=== PATIENT | female | born 1980 | race Caucasian/White ===

== ENCOUNTER → 2016-03-19 | Outpatient (CLI) | payer OTHER ==
--- NOTE | 2016-03-19 15:39 | US ---
March 19, [address] Lockhart, Thank you for allowing us to see your patient regarding polyhydramnios. As you know she is a 35 year -old 1, para 0. Her due date is 04/18/16 which is based on early dating. Her current gestatio nal age based on this dating is 35 weeks 5 days. She was seen previously for the same. Number of fetuses: 1 Placental location: right lateral/fundal no previa presentation: cephalic Cervix: suboptimal HUGO of 30 cm Measurements: Biparietal diameter: 85 mm 34 weeks, 2 days Head circumference: 333 mm 38 weeks, 1 days Abdominal circumference: 331 mm 37 weeks, 1 days Femur length: 67 mm 34 weeks, 5 days Humerus length: 59 mm 34 weeks, 1 days Average ultrasound age: 36 weeks, 1 days Estimated weight: 2884 gm weight percentile: 65 % ANATOMY anatomy was previously assessed. Today the following structures were visualized and appeared n ormal: Profile, heart rate 142 beats minute, four-chamber, stomach, bladder, right left kidney s.. Impression: This is a 35 year-old, 1, para 0 at 35 weeks, 5 days gestation. 1. SIUP with biometry cw gestational age as reported. 2. Polyhydramnios- stabilized at 30 cm today with reassuring growth. She will continue 2/wk NST, q we ek fluid and plan for delivery not later than 39 weeks. Thank you for allowing me to see your patient. Approximately 10 minutes was spent with the patient a nd 6 was spent discussing her issues. Wendi Deluca MD Perinatologist Division of Maternal Medicine Department of Obstetrics and Gynecology [facility]
--- NOTE | 2016-03-19 17:19 | US ---
Follow Up Obstetrical Sonography Clinical History: 36-year-old female with advanced maternal age and prior polyhydramnios. Technique: A curvilinear 5 MHz transducer was used to sonographically evaluate the fetus and placenta . M-mode Doppler was used. A cine clip was also obtained. Wendi Feldman was present. Comparison Studies: Obstetrical sonography dated March 05, 2016, and February 19, 2016. LMP: July 13, 2015, indicating an age of 35 weeks 5 days, and an estimated date of delivery of 2016. Findings: Again, there is a single viable intrauterine gestation. The fetus is currently vertex in pr esentation. The placenta is right lateral and fundal in location, with no placenta previa observed. T he maternal cervical assessment is suboptimal, secondary to the lateness of gestation and positioning of the head. Polyhydramnios is noted, with an HUGO of 30 cm and a maximal vertical pocket of 9. 5 cm. As a point of reference, the HUGO on March 05, 2016 was 32.2 cm with a maximal vertical pocke t of 9.9 cm. A anatomic survey has been performed in the past. On today's study, the sagittal facial profile , four-chambered heart, stomach, right and left kidneys, and urinary bladder are seen. The hear t rate is 142 beats per minute. biometry is as follows: The biparietal diameter is 85 mm, corresponding to an age of 34 weeks 2 days +/- 3 weeks 1 day, which is at the 18th percentile. The head circumference is 333 mm, corresponding to an age of 38 weeks 1 day +/- 2 weeks 5 days, which is at the 76th percentile. The abdominal circumference is 331 mm, corresponding to an age of 37 weeks 1 day +/- 3 weeks 1 day, w hich is at the 89th percentile. The femur length is 67 mm, corresponding to an age of 34 weeks 5 days +/- 3 weeks 0 days, which is at the 19th percentile. The humeral length is 59 mm, corresponding to an age of 34 weeks 1 day, for a composite gestational a ge of 36 weeks 1 day. The estimated weight is 2884 grams +/- 421 grams, which is 6 pounds 6 ounces +/- 15 ounces, whi ch is at the 65th percentile. As a point of reference, on the prior sonogram of February 19, 2016, the estimated weight was at the 56th percentile. The head circumference to abdominal circumference ratio is 1.01, which is normal range. The femur hector gth to biparietal diameter ratio is 79%, and the femur length to abdominal circumference ratio is 20% . Impression: There is a single viable intrauterine gestation with normal growth parameters and persis tent though stabilizing polyhydramnios, compared to March 05, 2016. Please also refer to Dr. Deluca's separate assessments and specific recommendations for follow up.
== END ==
LOC: FIMAGING 14:25
PROVIDERS: ATTEND Obstetrics & Gynecology
DX: O09.813 Supervision of pregnancy resulting from assisted reproductive technology, third trimester (principal); O09.523 Supervision of elderly multigravida, third trimester; Z3A.35 35 weeks gestation of pregnancy

== ENCOUNTER 2016-03-28 17:37 | Inpatient (IN) | payer OTHER ==
[2016-03-28] MEDS ORDERED: OXYTOCIN/RINGERS LACTATE 1,000 ML IV PRN (17:44)
[2016-03-28] MEDS ORDERED: LIDOCAINE 1% 30 ML SDV SC PRN (17:44)
[2016-03-28] MEDS ORDERED: TERBUTALINE SULFATE 1 MG/ML VIAL IV PRN (17:44)
[2016-03-28] MEDS ORDERED: MINERAL OIL 60 ML OIL TP PRN (17:44)
[2016-03-28] MEDS ORDERED: LR 1,000 ML IV PRN (17:44)
[2016-03-28] MEDS ORDERED: EPSOM SALT 454 GM TP PRN (17:44)
[2016-03-28] MEDS ORDERED: ACETAMINOPHEN 325 MG TAB PO PRN (18:08)
[2016-03-28] MEDS ORDERED: CALCIUM CARBONATE 500 MG CHEWABLE TAB PO PRN (18:09)
[2016-03-28] MEDS ORDERED: diphenhydrAMINE 25 MG CAP PO PRN (18:10)
[2016-03-28 18:46] LABS: % IMMATURE GRANULYOCYTES 0.5 % (0.0-1.1); ABSOLUTE IMMATURE GRANULOCYTES 0.05 10^3/uL (0.00-0.10); ADD DIFF? NO; ADD MORPH? NO; ADD SCAN? NO; ATYPICAL LYMPHOCYTE FLAG 10 (0-99); FRAGMENT RBC FLAG 0 (0-99); HEMATOCRIT 38.8 % (38.0-47.0); HEMOGLOBIN 13.8 g/dL (12.6-16.3); LEFT SHIFT FLG 0 (0-99); LIPEMIA HEMOLYSIS FLAG 90 (0-99); MEAN CELL HEMOGLOBIN 32.2 pg (27.9-34.1); MEAN CELL HEMOGLOBIN CONCENTR. 35.6 g/dL (32.4-36.7); MEAN CELL VOLUME 90.4 fL (81.5-99.8); MEAN PLATELET VOLUME 10.9 fL (8.7-11.7); PLATELET CLUMPS FLAG 0 (0-99); PLATELET COUNT 196 10^3/uL (150-400); RED BLOOD CELL COUNT 4.29 10^6/uL (4.18-5.33); RED CELL DISTRIBUTION WIDTH 12.7 % (11.5-15.2)
[2016-03-28] MEDS ORDERED: AMPICILLIN SODIUM 2 GM in NS 100 ML IV ONE (19:00)
[2016-03-28 19:06] LABS: ALANINE AMINOTRANSFERASE 44 IU/L (9-52); ASPARTATE AMINOTRANSFERASE 32 IU/L (14-46); BILIRUBIN,TOTAL 0.4 mg/dL (0.1-1.4); BILIRUBIN-CONJUGATED 0.2 mg/dL (0.0-0.5); BILIRUBIN-UNCONJUGATED 0.2 mg/dL (0.0-1.1); CREATININE 0.6 mg/dL (0.6-1.0); GLOMERULAR FILTRATION RATE > 60; LACTATE DEHYDROGENASE 617 IU/L (313-618)
[2016-03-28] MEDS: AMPICILLIN SODIUM 1 GM in NS 100 ML IV SCH (23:55)
[2016-03-29] MEDS ORDERED: OXYTOCIN/LR *STANDARD DOSE PROTOCOL IV SCH (04:00)
[2016-03-29] MEDS: AMPICILLIN SODIUM 1 GM in NS 100 ML IV SCH ×4 (04:14→19:45)
--- NOTE | 2016-03-29 08:40 | OBPROG ---
OBG Progress Note Assessment/Plan: Assessment: Pt is a 36 y/o at 37+1 weeks EGA admitted for IOL for GHTN and polyhydramnios - Plan: 1) status reassuring 2) Labor: Serrano bulb out, discussed AROM, but baby is not well engaged against the cervix. Will reevaluate and continue w/ pitocin. 3) GBS + on ampicillin 4) Pain, no issues 5) HTN: BP's stable, PIH labs normal on admission. Will recheck if severe BPs occur. 03/29/16 08:35 Subjective: Pt has no complaints, not feeling contractions. Objective: 03/28/16 18:15 03/28/16 18:15 Patient ABO/Rh A NEGATIVE 03/28/16 19:05 Uric Acid 4.0 mg/dL (2.5-6.8) 03/28/16 18:15 Total Bilirubin 0.4 mg/dL (0.1-1.4) 03/28/16 18:15 Conjugated Bilirubin 0.2 mg/dL (0.0-0.5) 03/28/16 18:15 Unconjugated Bilirubin 0.2 mg/dL (0.0-1.1) 03/28/16 18:15 AST 32 IU/L (14-46) 03/28/16 18:15 ALT 44 IU/L (9-52) 03/28/16 18:15 Lactate Dehydrogenase 617 IU/L (313-618) 03/28/16 18:15 - SVE Dilation (cm): 5 Effacement (%): 50 Station: -3 Current Contraction Pattern: Regular FHR (bpm): 140 FHR Pattern Variability: Moderate FHR Category: 1 ICD10 Worksheet Patient Problems: Problems Problem Status Diagnosed Gestational hypertension Acute Polyhydramnios affecting in third trimester Acute - ICD10 Problem Qualifiers (1) Gestational hypertension Qualifiers: Trimester: third trimester Qualified Description: -induced hypertension, third trimester Qualifier Code(s): (O13.3) Gestational [ -induced] hypertension without significant proteinuria, third trimester (2) Polyhydramnios affecting in third trimester
--- NOTE | 2016-03-29 10:49 | OBPROG ---
OBG Progress Note Assessment/Plan: Assessment: Pt is a 36 y/o at 37+1 weeks EGA admitted for IOL for GHTN and polyhydramnios - Plan: 1) status reassuring 2) Labor: S/P AROM, copious clear fluid noted. IUPC placed easily. Will continue w/ pitocin. 3) GBS + on ampicillin 4) Pain, no issues 5) HTN: BP's stable, PIH labs normal on admission. Will recheck if severe BPs occur. 03/29/16 10:48 Subjective: Pt has no complaints. Objective: 03/28/16 18:15 03/28/16 18:15 Patient ABO/Rh A NEGATIVE 03/28/16 19:05 Uric Acid 4.0 mg/dL (2.5-6.8) 03/28/16 18:15 Total Bilirubin 0.4 mg/dL (0.1-1.4) 03/28/16 18:15 Conjugated Bilirubin 0.2 mg/dL (0.0-0.5) 03/28/16 18:15 Unconjugated Bilirubin 0.2 mg/dL (0.0-1.1) 03/28/16 18:15 AST 32 IU/L (14-46) 03/28/16 18:15 ALT 44 IU/L (9-52) 03/28/16 18:15 Lactate Dehydrogenase 617 IU/L (313-618) 03/28/16 18:15 - SVE Dilation (cm): 5 Effacement (%): 50 Station: -2 (FSE/IUPC placed. Copious clear fluid with AROM, FSE placed, head well applied to cervix ) Current Contraction Pattern: Regular FHR (bpm): 140 FHR Pattern Variability: Moderate FHR Category: 1 Membranes: AROM Amniotic Fluid Color: Clear ICD10 Worksheet Patient Problems: Problems Problem Status Diagnosed Gestational hypertension Acute Polyhydramnios affecting in third trimester Acute - ICD10 Problem Qualifiers (1) Gestational hypertension Qualifiers: Trimester: third trimester Qualified Description: -induced hypertension, third trimester Qualifier Code(s): (O13.3) Gestational [ -induced] hypertension without significant proteinuria, third trimester (2) Polyhydramnios affecting in third trimester
[2016-03-29] MEDS: LEVOTHYROXINE 88 MCG TAB PO SCH (12:09)
--- NOTE | 2016-03-29 13:26 | OBPROG ---
OBG Progress Note Assessment/Plan: Assessment: Pt is a 36 y/o at 37+1 weeks EGA admitted for IOL for GHTN and polyhydramnios - Plan: 1) status over all reassuring - decreased variability noted intermittently w/ early decels and mild variables. +scalp stim noted w/ SVE, so pH >7.15. Will start amnioinfusion. 2) Labor: S/P AROM, copious clear fluid noted. CX now more effaced, which is progress. Will continue w/ pitocin. 3) GBS + on ampicillin 4) Pain, no issues 5) HTN: BP's stable, PIH labs normal on admission. Will recheck if severe BPs occur. 03/29/16 13:25 Subjective: Pt breathing through contractions. Objective: 03/28/16 18:15 03/28/16 18:15 Patient ABO/Rh A NEGATIVE 03/28/16 19:05 Uric Acid 4.0 mg/dL (2.5-6.8) 03/28/16 18:15 Total Bilirubin 0.4 mg/dL (0.1-1.4) 03/28/16 18:15 Conjugated Bilirubin 0.2 mg/dL (0.0-0.5) 03/28/16 18:15 Unconjugated Bilirubin 0.2 mg/dL (0.0-1.1) 03/28/16 18:15 AST 32 IU/L (14-46) 03/28/16 18:15 ALT 44 IU/L (9-52) 03/28/16 18:15 Lactate Dehydrogenase 617 IU/L (313-618) 03/28/16 18:15 - SVE Dilation (cm): 5 Effacement (%): 90 Station: -2 Current Contraction Pattern: Regular FHR (bpm): 135 FHR Pattern Variability: Minimal FHR Category: 1 (+scalp stim noted with accel to 155 bpm w/ SVE) Amniotic Fluid Color: Clear ICD10 Worksheet Patient Problems: Problems Problem Status Diagnosed Gestational hypertension Acute Polyhydramnios affecting in third trimester Acute - ICD10 Problem Qualifiers (1) Gestational hypertension Qualifiers: Trimester: third trimester Qualified Description: -induced hypertension, third trimester Qualifier Code(s): (O13.3) Gestational [ -induced] hypertension without significant proteinuria, third trimester (2) Polyhydramnios affecting in third trimester
[2016-03-29] MEDS ORDERED: fentaNYL 2MCG/ML/BUP 0.1% RTU 100 ML BAG EP ONE (13:41)
[2016-03-29] MEDS ORDERED: PHENYLEPHRINE HCL 100 MCG/ML SYR ONE (13:42)
[2016-03-29] MEDS ORDERED: BUPIVACAINE 0.25% 30 ML SDV ONE (13:42)
[2016-03-29] MEDS ORDERED: LR 500 ML IV SCH (15:00)
--- NOTE | 2016-03-29 16:31 | OBPROG ---
OBG Progress Note Assessment/Plan: Assessment: Pt is a 36 y/o at 37+1 weeks EGA admitted for IOL for GHTN and polyhydramnios - Plan: 1) status over all reassuring - improved w/ amnioinfusion. Intermittent decreased variability, good scalp stim w/ accel present after SVE. 2) Labor: S/P AROM, progressing well, now AL on left side, complete effacement , +1. Will continue w/ pitocin. 3) GBS + on ampicillin 4) Pain, no issues 5) HTN: BP's stable, PIH labs normal on admission. Will recheck if severe BPs occur. 03/29/16 16:30 Subjective: Pt comfortable with RYLEE. Objective: 03/28/16 18:15 03/28/16 18:15 Patient ABO/Rh A NEGATIVE 03/28/16 19:05 Uric Acid 4.0 mg/dL (2.5-6.8) 03/28/16 18:15 Total Bilirubin 0.4 mg/dL (0.1-1.4) 03/28/16 18:15 Conjugated Bilirubin 0.2 mg/dL (0.0-0.5) 03/28/16 18:15 Unconjugated Bilirubin 0.2 mg/dL (0.0-1.1) 03/28/16 18:15 AST 32 IU/L (14-46) 03/28/16 18:15 ALT 44 IU/L (9-52) 03/28/16 18:15 Lactate Dehydrogenase 617 IU/L (313-618) 03/28/16 18:15 - SVE Dilation (cm): 9 Effacement (%): 100 Station: +1 Current Contraction Pattern: Regular FHR (bpm): 140 FHR Pattern Variability: Moderate FHR Category: 1 Amniotic Fluid Color: Clear ICD10 Worksheet Patient Problems: Problems Problem Status Diagnosed Gestational hypertension Acute Polyhydramnios affecting in third trimester Acute - ICD10 Problem Qualifiers (1) Gestational hypertension Qualifiers: Trimester: third trimester Qualified Description: -induced hypertension, third trimester Qualifier Code(s): (O13.3) Gestational [ -induced] hypertension without significant proteinuria, third trimester (2) Polyhydramnios affecting in third trimester
--- NOTE | 2016-03-29 18:15 | OBPROG ---
OBG Progress Note Assessment/Plan: Assessment: Pt is a 36 y/o at 37+1 weeks EGA admitted for IOL for GHTN and polyhydramnios - Plan: 1) status over all reassuring - improved w/ amnioinfusion. Intermittent decreased variability, good scalp stim w/ accel present after SVE. 2) Labor: Will start pushing, good efforts noted w/ pushing at the bedside. 3) GBS + on ampicillin 4) Pain, no issues 5) HTN: BP's stable, PIH labs normal on admission. Will recheck if severe BPs occur. 03/29/16 18:14 Subjective: Pt comfortable, but can feel when getting a contraction. Objective: 03/28/16 18:15 03/28/16 18:15 Patient ABO/Rh A NEGATIVE 03/28/16 19:05 Uric Acid 4.0 mg/dL (2.5-6.8) 03/28/16 18:15 Total Bilirubin 0.4 mg/dL (0.1-1.4) 03/28/16 18:15 Conjugated Bilirubin 0.2 mg/dL (0.0-0.5) 03/28/16 18:15 Unconjugated Bilirubin 0.2 mg/dL (0.0-1.1) 03/28/16 18:15 AST 32 IU/L (14-46) 03/28/16 18:15 ALT 44 IU/L (9-52) 03/28/16 18:15 Lactate Dehydrogenase 617 IU/L (313-618) 03/28/16 18:15 - SVE Dilation (cm): 10 Effacement (%): 100 Station: +2 Current Contraction Pattern: Regular FHR (bpm): 140 FHR Pattern Variability: Moderate FHR Category: 2 (early decels at times) Amniotic Fluid Color: Clear ICD10 Worksheet Patient Problems: Problems Problem Status Diagnosed Gestational hypertension Acute Polyhydramnios affecting in third trimester Acute - ICD10 Problem Qualifiers (1) Gestational hypertension Qualifiers: Trimester: third trimester Qualified Description: -induced hypertension, third trimester Qualifier Code(s): (O13.3) Gestational [ -induced] hypertension without significant proteinuria, third trimester (2) Polyhydramnios affecting in third trimester
[2016-03-29] MEDS ORDERED: AMMONIA AROMATIC 1 EACH AMP IH ONE (18:28)
[2016-03-29] MEDS ORDERED: LIDOCAINE 1% 30 ML SDV ONE (18:28)
[2016-03-29] MEDS ORDERED: TERBUTALINE SULFATE 1 MG/ML VIAL ONE (18:29)
[2016-03-29] MEDS ORDERED: MISOPROSTOL 200 MCG TAB ONE (18:29)
[2016-03-29] MEDS ORDERED: OXYTOCIN 10 UNIT/ML VIAL ONE (18:29)
[2016-03-29] MEDS ORDERED: ACETAMINOPHEN 500 MG TAB PO ONE (19:30)
[2016-03-29] MEDS ORDERED: HEMABATE 250 MCG/1 ML AMP IM ONE (20:56)
[2016-03-29] MEDS ORDERED: DIPHENOXYLATE/ATROPINE LOMOTIL 1 TAB PO ONE (21:30)
--- NOTE | 2016-03-29 21:41 | OBPROC ---
- Labor and Delivery Onset of Contractions Date: 03/29/16 Onset of Contractions Time: 12:00 Onset of Contractions Type: Induced Rupture of Membranes Date: 03/29/16 Rupture of Membranes Time: 10:40 Rupture of Membranes Type: Artificial Amniotic Fluid Color: Clear Dilation Complete Time: 18:00 Delivery Type: Spontaneous Placenta Delivery Date: 03/29/16 Placenta Delivery Time: 20:54 Episiotomy/Laceration: 2nd Degree, Other (Specify) (2nd degree depth laceration of the vagina that extended in a "Y" shape into vagina, repaired with running locked stitch of 2-0 vicryl . Perineum actually intact. Two small labial lacerations that were repaired with interrupted stitches of 3-0 vicryl.) Repair: 2-0, Vicryl EBL: 450 cc Complications: Post Hemorrhage, Uterine Atony (RX with hemabate x 1, cytotec x 1, and pitocin 30U/500cc IV) - Medications Labor Augmentation/Induction Meds Used: Pitocin Labor Augmentation/Induction Indication: Medical (Gestational HTN and polyhydramnios) Anesthesia: Epidural - Info A Delivery Date: 03/29/16 Delivery Time: 20:50 Sex of : Female Score (1 Min): 8 Score (5 Min): 9 (Patient pushed x 3 hrs, baby was in CHARLI position with compound right arm. Baby placed on maternal abdomen. Cord clamped after 1.5 minutes. Cord blood obtained. Placenta delivered with gentle cord traction and bilobed. Uterine atony noted and PPH - RX with pitocin 30U/500cc IV, cytotec 1000mcg [place], and hemabate 250mcg IM. Tone improved. Midline 2nd degree laceration repaired and hemostatic, labial lacerations repaired and hemostatic. Bladder drained in sterile fashion (apprx 150cc). Mother and baby in stable condition.)
[2016-03-29] MEDS ORDERED: HYDROCORTISONE 0.5% CREAM TP PRN (21:46)
[2016-03-29] MEDS ORDERED: SIMETHICONE 80 MG TAB CHEW PO PRN (21:46)
[2016-03-29] MEDS ORDERED: HYDROCODONE/APAP 5/325 TAB PO PRN (21:46)
[2016-03-29] MEDS ORDERED: OXYTOCIN/RINGERS LACTATE 1,000 ML IV SCH (22:00)
[2016-03-30] MEDS: AMPICILLIN SODIUM 1 GM in NS 100 ML IV SCH (04:43)
[2016-03-30] MEDS: LEVOTHYROXINE 88 MCG TAB PO SCH (06:20)
[2016-03-30] MEDS: DOCUSATE SODIUM 100 MG CAP PO PRN ×2 (08:38→22:31)
[2016-03-30] MEDS: IBUPROFEN 600 MG TAB PO PRN ×3 (08:38→22:31)
--- NOTE | 2016-03-30 09:12 | SOAPPROG ---
SOAP Progress Note Assessment/Plan: Assessment: 36 y.o. female s/p day #1. Patient had induction for labor due to GHTN and polyhydramnios. Recovering well with good pain control. Plan: Routine care. Begin Iron PO BID. consult. 03/30/16 09:08 Subjective: Patient reports feeling well with good pain control and minimal vaginal bleeding. with assistance. Has been out of bed and ambulating without vertigo. Eating and drinking well without nausea or vomiting. Appropriate mood with good support system. Objective: Vital Signs Temp Pulse Resp BP Pulse Ox 37.5 C 91 18 122/77 H 98 03/30/16 00:45 03/30/16 00:45 03/30/16 00:45 03/30/16 00:45 03/29/16 23:52 Laboratory Results 03/30/16 04:15 03/28/16 18:15 03/29/16 03/30/16 03/31/16 05:59 05:59 05:59 Output Total 450 Balance -450 - Time Spent With Patient Time Spent With Patient: 20 minutes - Pending Discharge Pending Discharge Within 24 Hours: Yes Pending Discharge Date: 03/31/16 Pending Discharge Time: 11:00 Physical Exam - Physical Exam General Appearance: WD/WN, alert, no apparent distress EENT: normal ENT inspection Neck: non-tender, full range of motion Respiratory: lungs clear, normal breath sounds Cardiac/Chest: regular rate, rhythm Abdomen: non-tender, soft Pelvic Exam: normal external exam Rectal: deferred Back: Normal inspection Skin: normal color, warm/dry Lymphatic: no adenopathy Extremities: normal range of motion, non-tender Neuro/Psych: alert, normal mood/affect, oriented x 3 ICD10 Worksheet Patient Problems: Problems Problem Status Diagnosed Gestational hypertension Acute Polyhydramnios affecting in third trimester Acute
[2016-03-30] MEDS: IRON POLYSAC/IRON HEME 28 MG TAB PO SCH ×2 (15:05→22:51)
[2016-03-31] MEDS: IBUPROFEN 600 MG TAB PO PRN ×2 (05:02→12:08)
[2016-03-31] MEDS: LEVOTHYROXINE 88 MCG TAB PO SCH (05:02)
[2016-03-31] MEDS: DOCUSATE SODIUM 100 MG CAP PO PRN (08:55)
[2016-03-31] MEDS: IRON POLYSAC/IRON HEME 28 MG TAB PO SCH (08:55)
[2016-03-31 09:51] VITALS: TEMP 97.9; O2SAT 96
--- NOTE | 2016-03-31 10:05 | OBGCSDC ---
General Delivery Information - General Info : 1 Para: 1 Delivery Date: 03/29/16 Delivery Time: 20:50 Delivery Physician/CNM: Alexa Lockhart Admission Date: 03/28/16 Labs: Patient ABO/Rh A NEGATIVE 03/29/16 23:00 Hct 30.2 % (38.0-47.0) L 03/30/16 04:15 - [place] Info A Sex of : Female Score (1 Min): 8 Score (5 Min): 9 (Patient pushed x 3 hrs, baby was in CHARLI position with compound right arm. Baby placed on maternal abdomen. Cord clamped after 1.5 minutes. Cord blood obtained. Placenta delivered with gentle cord traction and bilobed. Uterine atony noted and PPH - RX with pitocin 30U/500cc IV, cytotec 1000mcg [place], and hemabate 250mcg IM. Tone improved. Midline 2nd degree laceration repaired and hemostatic, labial lacerations repaired and hemostatic. Bladder drained in sterile fashion (apprx 150cc). Mother and baby in stable condition.) Vaginal - Diagnosis Labor: Induced Rupture of Membranes Type: Artificial Amniotic Fluid Color: Clear Laceration: 2nd Degree Repair: 2-0, Vicryl Complications: Post Hemorrhage, Uterine Atony (RX with hemabate x 1, cytotec x 1, and pitocin 30U/500cc IV) - Operations/Procedures Delivery Type: Spontaneous Anesthesia: Epidural - Delivery EBL: 450 cc Anesthesia: Epidural Discharge Information - Discharge Information Discharge Medications: Ibuprofen, Vitamins, Vicodin Condition: Good Instruction/Follow Up: See Instruction Sheet Discharge Physician/CNM: Chelsi Barroso Discharge Date: 03/31/16 Dictated: No
[2016-03-31 12:12] LABS: % IMMATURE GRANULYOCYTES 1.1 % (0.0-1.1); ABSOLUTE IMMATURE GRANULOCYTES 0.12 10^3/uL (0.00-0.10); ADD DIFF? NO; ADD MORPH? NO; ADD SCAN? NO; ATYPICAL LYMPHOCYTE FLAG 0 (0-99); FRAGMENT RBC FLAG 0 (0-99); HEMATOCRIT 32.3 % (38.0-47.0); HEMOGLOBIN 10.9 g/dL (12.6-16.3); LEFT SHIFT FLG 0 (0-99); LIPEMIA HEMOLYSIS FLAG 80 (0-99); MEAN CELL HEMOGLOBIN 31.8 pg (27.9-34.1); MEAN CELL HEMOGLOBIN CONCENTR. 33.7 g/dL (32.4-36.7); MEAN CELL VOLUME 94.2 fL (81.5-99.8); MEAN PLATELET VOLUME 10.5 fL (8.7-11.7); PLATELET CLUMPS FLAG 10 (0-99); PLATELET COUNT 184 10^3/uL (150-400); RED BLOOD CELL COUNT 3.43 10^6/uL (4.18-5.33); RED CELL DISTRIBUTION WIDTH 13.2 % (11.5-15.2)
[2016-03-31 12:22] LABS: ALANINE AMINOTRANSFERASE 51 IU/L (9-52); ASPARTATE AMINOTRANSFERASE 42 IU/L (14-46); BILIRUBIN,TOTAL 0.3 mg/dL (0.1-1.4); BILIRUBIN-CONJUGATED 0.2 mg/dL (0.0-0.5); BILIRUBIN-UNCONJUGATED 0.1 mg/dL (0.0-1.1); CREATININE 0.6 mg/dL (0.6-1.0); GLOMERULAR FILTRATION RATE > 60; LACTATE DEHYDROGENASE 692 IU/L (313-618); URIC ACID 3.7 mg/dL (2.5-6.8)
[2016-03-31 13:00] VITALS: BP 141/92; PULSE 77; RESP 16
== END 2016-03-31 14:00 | disposition home or self-care (01) | DRG 774 ==
LOC: FLD 17:37 → FOB 03-29 23:15
PROVIDERS: ADMIT Obstetrics & Gynecology; ATTEND Obstetrics & Gynecology
PROC: 3E0P7GC Introduction of Other Therapeutic Substance into Female Reproductive, Via Natural or Artificial Opening (ICD-10-PCS; principal; 2016-03-29)
PROC: 0KQM0ZZ Repair Perineum Muscle, Open Approach (ICD-10-PCS; principal; 2016-03-29)
PROC: 10E0XZZ Delivery of Products of Conception, External Approach (ICD-10-PCS; principal; 2016-03-29)
PROC: 10907ZC Drainage of Amniotic Fluid, Therapeutic from Products of Conception, Via Natural or Artificial Opening (ICD-10-PCS; principal; 2016-03-29)
PROC: 3E0E3GC Introduction of Other Therapeutic Substance into Products of Conception, Percutaneous Approach (ICD-10-PCS; principal; 2016-03-29)
PROC: 3E033VJ Introduction of Other Hormone into Peripheral Vein, Percutaneous Approach (ICD-10-PCS; principal; 2016-03-29)
DX: O13.4 Gestational [pregnancy-induced] hypertension without significant proteinuria, complicating childbirth (principal); O40.3XX0 Polyhydramnios, third trimester, not applicable or unspecified; O99.824 Streptococcus B carrier state complicating childbirth; O70.1 Second degree perineal laceration during delivery; O72.1 Other immediate postpartum hemorrhage; O99.284 Endocrine, nutritional and metabolic diseases complicating childbirth; E03.9 Hypothyroidism, unspecified; O32.6XX0 Maternal care for compound presentation, not applicable or unspecified; O43.893 Other placental disorders, third trimester; O09.523 Supervision of elderly multigravida, third trimester; Z3A.37 37 weeks gestation of pregnancy; Z37.0 Single live birth
CPT/HCPCS: G0463; J0290; J2370; J2590; J3105